=== PATIENT | male | born 1985 | race Caucasian/White ===

== ENCOUNTER 2023-02-12 09:00 | Emergency (ER) | payer BC, OTHER ==
[2023-02-12 09:22] VITALS: RESP 18; TEMP 97.9
[2023-02-12] MEDS ORDERED: Sodium Chloride 0.9% 1000 ML 1,000 ML IV STA (09:46)
[2023-02-12 09:51] LABS: Absolute Neutrophil Ct (ANC) 5.24 x10^3/uL (1.4-6.9); BASOPHIL % 0.6 % (0.0-0.4); Basophil (Absolute #) 0.05 x10^3/uL (0-0.4); Eosinophil % 2.2 % (0.00-5.0); Eosinophil (Absolute #) 0.19 x10^3/uL (0-0.5); Hematocrit 43.3 % (42-50); Hemoglobin 15.4 g/dL (12.5-18.0); IMMATURE GRAN # 0.01 x10^3u/L (0.00-0.03); IMMATURE GRAN % 0.1 % (0.00-0.4); Lymphocyte (Absolute #) 2.11 x10^3/uL (1.0-4.6); Lymphocytes % 24.8 % (24.0-44.0); Mean Cell Volume 83.4 fL (78-100); Mean Corpuscular Hemoglobin 29.7 pg (26-32); Mean Corpuscular Hgb Concent. 35.6 g/dL (32-36); Mean Platelet Volume 9.7 fL (7.5-11.0); Monocyte (Absolute #) 0.92 x10^3/uL (0.0-1.3); Monocytes % 10.8 % (0.0-12.0); Neutrophil % 61.5 % (36.0-66.0); Platelet Count 267 x10^3/uL (150-450); Red Blood Count 5.19 x10^6/uL (4.1-5.6); White Blood Count 8.5 x10^3/uL (4.0-10.5)
[2023-02-12] MEDS ORDERED: Sodium Chloride 0.9% 1000 ML 1,000 ML ONE (09:57)
--- NOTE | 2023-02-12 10:40 | XRAY ---
Indication: Right lower quadrant/groin pain. Multiple contiguous axial images obtained through the abdomen and pelvis using 80 cc Isovue 370 contrast. Comparison: None Lung bases demonstrates tiny left base calcified granuloma. Heart not enlarged. Small hiatal hernia. Noncontrasted stomach and bowel loops nonobstructed with normal appearing appendix. No free fluid/air. Remaining liver, gallbladder, pancreas, spleen, adrenal glands, kidneys, ureters, bladder, and aorta are normal in CT appearance and attenuation. No pathologic retroperitoneal lymphadenopathy. Osseous structures intact with minimal degenerative changes throughout the visualized spine. No ventral/inguinal hernias. Impression: Small hiatal hernia, right lung base calcified granuloma, and degenerative spondylosis. Remaining CT abdomen/pelvis with contrast exam is normal.
[2023-02-12 11:02] LABS: ALBUMIN 4.6 g/dL (3.5-5.0); ALKALINE PHOSPHATASE 52 U/L (38-126); ANION GAP 14.6 MEQ/L (5-15); BLOOD UREA NITROGEN 15 mg/dL (9-20); CHLORIDE 104 mmol/L (98-107); Calcium 9.1 mg/dL (8.4-10.2); Carbon Dioxide 25 mmol/L (22-30); Creatinine 1 0.95 mg/dL (0.66-1.25); EST GLOMERULAR FILTRATION RATE > 60.0 ML/MIN; Glucose 99 mg/dL (74-106); Potassium 3.5 mmol/L (3.5-5.1); SGOT/AST 33 U/L (17-59); SGPT/ALT 32 U/L (0-50); SODIUM 141 mmol/L (137-145); Total Protein 7.6 g/dL (6.3-8.2)
[2023-02-12 11:04] LABS: Appearance Clear (Clear); Bacteria None Seen /HPF (None Seen); Bilirubin Negative (Negative); Blood Moderate (Negative); Epithelial Cells None Seen /HPF (None Seen); Glucose, Urine Negative (Negative); Hyaline Casts NONE SEEN /LPF (0-2); Ketones Negative (Negative); Leukocyte Esterase Negative (Negative); Nitrite Negative (Negative); Ph 6.5 (4.6-8.0); Protein,Urine Dip Negative (Negative); Specific Gravity >=1.030 (1.005-1.030); WBC 0-2 /HPF (0-5)
[2023-02-12 11:17] LABS: ADD URINE CULTURE? NO (NO)
--- NOTE | 2023-02-12 11:30 | ERPHSYRPT ---
- History of Present Illness Time Seen by Provider: 02/12/23 09:13 Patient Subjective Stated Complaint: Lower abdominal pain Triage Nursing Assessment: Patient ambulated back to ED and transferred self to bed. Patient A+O X 3. Patient's skin pink, warm and dry. Patient complains of right lower abdominal pain 3/10 constant aching, but the pain intermittent sharp pain 10/10. Patient states the pain the pain goes down right lower leg. Abdomen soft and round with BS X 4. Patient denies N/V, but states he has been having diarrhea. Timing/Duration: today, sudden, improved Activities at Onset: rest Quality: sharpness Abdominal Pain Onset Location: RLQ Pain Radiation: groin Severity of Pain-Max: severe Severity of Pain-Current: mild Modifying Factors: Improves With: nothing Associated Symptoms: denies symptoms Previous symptoms: no prior history Allergies/Adverse Reactions: No Known Drug Allergies Allergy (Verified 02/12/23 09:09) Hx Tetanus, Diphtheria Vaccination/Date Given: Yes Hx Influenza Vaccination/Date Given: No Hx Pneumococcal Vaccination/Date Given: No Immunizations Up to Date: Yes Travel Risk - International Travel Have you traveled outside of the country in past 3 weeks: No - Coronavirus Screening Are you exhibiting any of the following symptoms?: No Close contact with a COVID-19 positive Pt in past 14-21 Days: No - Vaccine Status Have you recieved a Covid-19 vaccination: No - Review of Systems Constitutional: No Symptoms Eyes: No Symptoms Ears, Nose, & Throat: No Symptoms Respiratory: No Symptoms Cardiac: No Symptoms Abdominal/Gastrointestinal: Abdominal Pain Genitourinary Symptoms: Frequency Musculoskeletal: No Symptoms Skin: No Symptoms Neurological: No Symptoms Psychological: No Symptoms Endocrine: No Symptoms Hematologic/Lymphatic: No Symptoms - Past Medical History Pertinent Past Medical History: Yes Neurological History: Migraines, Other ENT History: No Pertinent History Cardiac History: No Pertinent History Respiratory History: No Pertinent History Endocrine Medical History: No Pertinent History Musculoskeletal History: No Pertinent History GI Medical History: No Pertinent History History: No Pertinent History Psycho-Social History: No Pertinent History Male Reproductive Disorders: No Pertinent History - Past Surgical History Past Surgical History: Yes Neuro Surgical History: No Pertinent History Cardiac: No Pertinent History Respiratory: No Pertinent History Gastrointestinal: No Pertinent History Genitourinary: No Pertinent History Musculoskeletal: Orthopedic Surgery Male Surgical History: No Pertinent History Other Surgical History: left finger amputation - Social History Smoking Status: Never smoker Exposure to second hand smoke: No Drug Use: none Patient Lives Alone: No - Nursing Vital Signs Nursing Vital Signs: Initial Vital Signs Temperature 97.9 F 02/12/23 09:10 Pulse Rate 87 02/12/23 09:10 Respiratory Rate 18 02/12/23 09:10 Blood Pressure 156/97 02/12/23 09:10 O2 Sat by Pulse Oximetry 97 02/12/23 09:10 Pain Scale Pain Intensity 0 - Physical Exam General Appearance: no apparent distress, alert Eye Exam: PERRL/EOMI Ears, Nose, Throat Exam: normal ENT inspection Neck Exam: normal inspection, non-tender, supple, full range of motion Respiratory Exam: normal breath sounds, lungs clear Cardiovascular Exam: regular rate/rhythm, normal heart sounds Gastrointestinal/Abdomen Exam: soft, normal bowel sounds, tenderness (minimal right LQ / groin) Extremity Exam: normal inspection, normal range of motion Neurologic Exam: alert, oriented x 3, cooperative Skin Exam: normal color SpO2 Interpretation: normal SpO2: 96 O2 Delivery: Room Air Ordered Tests: Active Orders 24 hr Category Date Time Status IV Insertion STAT Care 02/12/23 09:46 Completed NPO (ED) STAT Care 02/12/23 09:46 Completed ABDOMEN AND PELVIS W CONTRAST [CT] Stat Exams 02/12/23 09:46 Completed CBC W DIFF Stat Lab 02/12/23 09:45 Completed CMP Stat Lab 02/12/23 09:45 Completed Lactic Acid Stat Lab 02/12/23 09:50 Completed UA W/RFX UR CULTURE Stat Lab 02/12/23 09:46 Completed Medication Summary Discontinued Medications Generic Name Dose Route Start Last Admin Trade Name Betitoq PRN Reason Stop Dose Admin Sodium Chloride 1,000 mls @ 999 mls/hr 02/12/23 09:46 02/12/23 11:08 Sodium Chloride 0.9% 1000 Ml IV 02/12/23 10:46 Infused .Q1H1M STA Infusion Sodium Chloride Confirm 02/12/23 09:57 Sodium Chloride 0.9% 1000 Ml Administered 02/12/23 09:58 Dose 1,000 mls @ ud .ROUTE .STK-MED ONE Lab/Rad Data: Laboratory Result Diagrams 02/12/23 09:45 02/12/23 09:45 Laboratory Results 02/12/23 02/12/2302/12/23 Range/Units 09:50 09:46 09:45 WBC (4.0-10.5) x10^3/uL RBC (4.1-5.6) x10^6/uL Hgb (12.5-18.0) g/dL Hct (42-50) % MCV (78-100) fL MCH (26-32) pg MCHC (32-36) g/dL RDW (11.5-14.0) % Plt Count (150-450) x10^3/uL MPV (7.5-11.0) fL Gran % (36.0-66.0) % Immature Gran % (Auto) (0.00-0.4) % Nucleat RBC Rel Count (0.00-0.1) % Eos # (Auto) (0-0.5) x10^3/uL Immature Gran # (Auto) (0.00-0.03) x10^3u/L Absolute Lymphs (auto) (1.0-4.6) x10^3/uL Absolute Monos (auto) (0.0-1.3) x10^3/uL Absolute Nucleated RBC (0.00-0.01) x10^3u/L Lymphocytes % (24.0-44.0) % Monocytes % (0.0-12.0) % Eosinophils % (0.00-5.0) % Basophils % (0.0-0.4) % Absolute Granulocytes (1.4-6.9) x10^3/uL Basophils # (0-0.4) x10^3/uL Sodium 141 (137-145) mmol/L Potassium 3.5 (3.5-5.1) mmol/L Chloride 104 (98-107) mmol/L Carbon Dioxide 25 (22-30) mmol/L Anion Gap 14.6 (5-15) MEQ/L BUN 15 (9-20) mg/dL Creatinine 0.95 (0.66-1.25) mg/dL Estimated GFR > 60.0 ML/MIN Glucose 99 (74-106) mg/dL Lactic Acid 1.0 (0.4-2.0) Calcium 9.1 (8.4-10.2) mg/dL Total Bilirubin 1.00 (0.2-1.3) mg/dL AST 33 (17-59) U/L ALT 32 (0-50) U/L Alkaline Phosphatase 52 (38-126) U/L Serum Total Protein 7.6 (6.3-8.2) g/dL Albumin 4.6 (3.5-5.0) g/dL Urine Color Yellow (Yellow) Urine Appearance Clear (Clear) Urine pH 6.5 (4.6-8.0) Ur Specific [place] >=1.030 A (1.005-1.030) Urine Protein Negative (Negative) Urine Glucose (UA) Negative (Negative) mg/dL Urine Ketones Negative (Negative) Urine Blood Moderate A (Negative) Urine Nitrite Negative (Negative) Urine Bilirubin Negative (Negative) Urine Urobilinogen 1.0 A (0.2) mg/dL Ur Leukocyte Esterase Negative (Negative) U Hyaline Cast (Auto) NONE SEEN (0-2) /LPF Urine Microscopic RBC 6-10 A (0-5) /HPF Urine Microscopic WBC 0-2 (0-5) /HPF Ur Epithelial Cells None Seen (None Seen) /HPF Urine Bacteria None Seen (None Seen) /HPF Urine Culture Reflexed NO (NO) 02/12/23 Range/Units 09:45 WBC 8.5 (4.0-10.5) x10^3/uL RBC 5.19 (4.1-5.6) x10^6/uL Hgb 15.4 (12.5-18.0) g/dL Hct 43.3 (42-50) % MCV 83.4 (78-100) fL MCH 29.7 (26-32) pg MCHC 35.6 (32-36) g/dL RDW 13.0 (11.5-14.0) % Plt Count 267 (150-450) x10^3/uL MPV 9.7 (7.5-11.0) fL Gran % 61.5 (36.0-66.0) % Immature Gran % (Auto) 0.1 (0.00-0.4) % Nucleat RBC Rel Count 0.0 (0.00-0.1) % Eos # (Auto) 0.19 (0-0.5) x10^3/uL Immature Gran # (Auto) 0.01 (0.00-0.03) x10^3u/L Absolute Lymphs (auto) 2.11 (1.0-4.6) x10^3/uL Absolute Monos (auto) 0.92 (0.0-1.3) x10^3/uL Absolute Nucleated RBC 0.00 (0.00-0.01) x10^3u/L Lymphocytes % 24.8 (24.0-44.0) % Monocytes % 10.8 (0.0-12.0) % Eosinophils % 2.2 (0.00-5.0) % Basophils % 0.6 (0.0-0.4) % Absolute Granulocytes 5.24 (1.4-6.9) x10^3/uL Basophils # 0.05 (0-0.4) x10^3/uL Sodium (137-145) mmol/L Potassium (3.5-5.1) mmol/L Chloride (98-107) mmol/L Carbon Dioxide (22-30) mmol/L Anion Gap (5-15) MEQ/L BUN (9-20) mg/dL Creatinine (0.66-1.25) mg/dL Estimated GFR ML/MIN Glucose (74-106) mg/dL Lactic Acid (0.4-2.0) Calcium (8.4-10.2) mg/dL Total Bilirubin (0.2-1.3) mg/dL AST (17-59) U/L ALT (0-50) U/L Alkaline Phosphatase (38-126) U/L Serum Total Protein (6.3-8.2) g/dL Albumin (3.5-5.0) g/dL Urine Color (Yellow) Urine Appearance (Clear) Urine pH (4.6-8.0) Ur Specific [place] (1.005-1.030) Urine Protein (Negative) Urine Glucose (UA) (Negative) mg/dL Urine Ketones (Negative) Urine Blood (Negative) Urine Nitrite (Negative) Urine Bilirubin (Negative) Urine Urobilinogen (0.2) mg/dL Ur Leukocyte Esterase (Negative) U Hyaline Cast (Auto) (0-2) /LPF Urine Microscopic RBC (0-5) /HPF Urine Microscopic WBC (0-5) /HPF Ur Epithelial Cells (None Seen) /HPF Urine Bacteria (None Seen) /HPF Urine Culture Reflexed (NO) - Progress Progress: improved Progress Note: 02/12/23 11:28 37-year-old is evaluated in the ER with sudden onset right lower quadrant/right groin pain around 730 this morning. Moderate to severe sharp pain and it improved to a great extent prior to arrival in the ER. Patient did not report any difficulty urination. No nausea vomiting or diarrhea. Patient also reports some radiation to the right flank area. On exam patient has minimal tenderness right lower quadrant/groin area. No palpable mass. Negative expansile cough impulse. No inguinal scrotal swelling. Offered pain medication which she declined. Work-up showed normal white count, unremarkable chemistries. No UTI but does have some blood in the urine. CT abdomen pelvis is negative for hernia incarceration/obstruction/acute appendicitis/stone. With blood in the stone it is possible patient has probably passed a stone prior to arrival. Outpatient follow-up. Discussed signs symptoms to ER which he seems understanding. Stable for discharge. Counseled pt/family regarding: lab results, diagnosis, need for follow-up, rad results Medical Desision Making - Diagnostic Testing Diagnostic test were ordered, analyzed, and reviewed by me: Yes Radiological Interpretation: Reviewed by me - Risk of complications The pt has a mod risk of morbidity or mortality based on: Need for prescription drug management - Departure Departure Disposition: Home Clinical Impression: Lower abdominal pain Condition: Stable Critical Care Time: No Referrals: DOCTOR,NO FAMILY [Primary Care Provider] - Follow up/PCP as directed RYAN RILEY MD [ACTIVE STAFF] - Follow up with PCP 1 day Instructions: Severe Abdominal Pain, Adult (DC) Additional Instructions: Take Tylenol/ibuprofen as needed. Drink plenty of fluids. Follow-up with primary care for reevaluation. Return to ER for intractable pain/vomiting/fever chills/difficulty urination etc. Prescriptions: Ibuprofen 600 mg PO Q6HPRN PRN 10 Days #20 tablet PRN Reason: Pain
[2023-02-12 11:47] VITALS: BP 113/91; PULSE 63
[2023-02-12 12:00] VITALS: O2SAT 96
== END 2023-02-12 11:53 | disposition home or self-care (01) ==
LOC: ED 09:00
DX: R10.31 Right lower quadrant pain (principal); Z28.310 Unvaccinated for COVID-19
CPT/HCPCS: 36000; 36415; 74177; 80053; 81001; 83605; 85025; 96360; 99284